=== PATIENT | female | born 1940 | race Caucasian/White ===

== ENCOUNTER → 2018-04-09 | Outpatient (CLI) | payer OTHER ==
[~2018-04-09] VITALS: Ht 152.4 cm; Wt 56.7 kg
[~2018-04-09] MED LIST: BENTYL 10 MG CA10 M1 PO; BIOTIN5000 MCG PO; FISH OIL 1,001000 M2 PO; GREEN TEA1 EACH PO; HAIR FORMULA T1 EACH PO; LEXAPRO20 MG PO; MULTI VITAMIN1 EACH PO; PRAVACHOL40 MG PO; PRILOSEC 20 MG20 MG PO; TRAVATAN Z2.5 ML OPHTHALMIC; VITAMIN D-32000 UNIT PO; ZETIA10 MG PO
--- NOTE | 2018-04-10 12:36 | P ---
[facility] [place] [address] PROCEDURE REPORT Name: SAYDALISABrettUSHA A Room #: REG [facility]#: [id number] Admission: 04/09/18 ������������������ Attend Phys: Jaycob Cortez MD Discharge: ������������������ Date of : 42 Report #: [id number] THIS REPORT FOR: //name// CC: Jaycob Johnson MD BRIEF HISTORY: The patient is a 78-year-old woman with a history of microscopic colitis in the past, which had resolved; however, she now has irregular bowel habits with pencil like stools. She has irregular bowel habits and change in her stool consistency and pattern. PREOPERATIVE DIAGNOSES: Change in stool habits and abdominal pain. POSTOPERATIVE DIAGNOSES: Normal colonoscopy. Moderate sigmoid diverticulosis. MEDICATIONS: Deep sedation with propofol per Anesthesia. SPECIMENS: 1. Random biopsies, proximal colon, rule out colitis. 2. Random biopsies, distal colon and rectum, rule out colitis. ESTIMATED BLOOD LOSS: 3 mL. PROCEDURE: Colonoscopy to cecum and terminal ileum with biopsy. FINDINGS: Prior to propofol sedation, procedure of colonoscopy discussed with the patient as well as potential risks and its complications. She indicates she understands and desires to proceed. DESCRIPTION OF PROCEDURE: With the patient in left lateral decubitus position, digital examination was completed which revealed decreased anal sphincter tone. No mass lesions were palpable. Subsequently, the Olympus video colonoscope was introduced in the rectum, advanced under direct vision to the cecum. It was done with minimal difficulty. The cecum was identified by the ileocecal valve and the appendiceal orifice. I was able to visualize the distal segment of terminal ileum, which was inspected and noted to be unremarkable. At that point, the scope was slowly withdrawn and careful circumferential views obtained including retroflexion of the scope in the ascending colon. Upon slow withdrawal of the scope, the prep was noted to be excellent. The mucosa was within normal limits, normal vascular pattern and normal light reflex. As we withdrew the scope, no neoplastic or inflammatory changes were seen. There was no endoscopic evidence of colitis. Multiple random biopsies were obtained. The only abnormality noted was moderate sigmoid diverticular disease involving primarily the distal sigmoid. Scope was withdrawn in the rectum. Upon retroflexion, no abnormalities were seen. Scope was withdrawn. [address] [address] PROCEDURE REPORT Name: USHA SMITH [id number] Admission: 04/09/18 ������������������ Attend Phys: Jaycob Cortez MD Discharge: ������������������ Date of : 42 Report #: [id number] CONDITION OF THE PATIENT UPON DISCHARGE: Following procedure, the patient drowsy, arousable and conversant and will be discharged home when fully ambulatory. INSTRUCTIONS TO THE PATIENT AND FAMILY AT THE TIME OF DISCHARGE: No neoplastic lesions were seen. I do not find any inflammatory lesions either. We will follow up with the pathology to make further recommendations. As far as her abdominal pain, she may continue use dicyclomine, but should be cautious with that because of potential risk for drowsiness. This has been discussed with the patient, more view. Also, suggest pelvic floor exercises due to decreased anal tone. Also, suggest a fiber product which may add bulk and help stool consistencies and her bowel habits. If she does not have improvement of symptoms, she should return for a followup in the office. At this point in life, there is likely be of minimal benefit from routine screening colonoscopy; however, colonoscopy could be pursued based on specific problem or diagnosis. Withdrawal time from cecum was 10 minutes and 8 seconds. ��������������������������������������������� <ELECTRONICALLY SIGNED> ���������������������������������������� By: Jaycob Cortez MD ��������������������������������������������� 04/10/18 1236 [id number] [id number] Jaycob Cortez MD /nt
--- NOTE | 2018-04-10 12:36 | P ---
[facility] [place] [address] PROCEDURE REPORT Name: SARAHUSHA A Room #: REG [facility]#: [id number] Admission: 04/09/18 ������������������ Attend Phys: Jaycob Cortez MD Discharge: ������������������ Date of : 42 Report #: [id number] THIS REPORT FOR: //name// CC: Jaycob Johnson MD BRIEF HISTORY: The patient is a 78-year-old woman known to me with history of change in bowel habits with persistent looseness of stools. She also has upper abdominal pain, has a history of gastric ulcer. PREOPERATIVE DIAGNOSES: 1. Abdominal pain. 2. History of ulcer disease. 3. Solid food dysphagia. POSTOPERATIVE DIAGNOSES: 1. Mild diffuse gastritis. 2. Dysphagia. MEDICATIONS: Deep sedation with propofol per anesthesia. SPECIMEN: Biopsies of small bowel, rule out celiac disease. ESTIMATED BLOOD LOSS: 3 mL. PROCEDURE: EGD with biopsy, Strange dilation. FINDINGS: Prior to propofol sedation, procedure of upper endoscopy and dilation were discussed with the patient as well as potential risks and its complications. She indicates she understands and desires to proceed. DESCRIPTION OF PROCEDURE: With the patient in left lateral decubitus position, the Olympus video endoscope was inserted in the cervical esophagus under direct vision without difficulty. Examination of esophagus through its entire length revealed normal esophageal mucosa down the squamocolumnar junction. She has intermittent dysphagia, I did not see any strictures, rings, or masses. A significant hiatus hernia was not seen. There was no evidence of esophagitis or Mahmood mucosa. Scope was advanced in the stomach, was examined on end view as well as retroflexed views. There was erythema in the antrum, but no ulcers or erosions. There was no evidence of peptic ulcer disease on today's exam. Upon retroflexion, the mucosa was normal in the proximal stomach and no masses were seen in the cardia. The pylorus, duodenal bulb and postbulbar duodenal sweep down to the third portion were inspected and noted to be unremarkable. At that point, the scope was slowly withdrawn and careful circumferential views were obtained. Biopsies were obtained of the small bowel to evaluate for celiac disease in view of looseness in her stool. Following removal of the scope, she [address] [address] PROCEDURE REPORT Name: USHA SMITH Room #: REG [facility]#: [id number] Admission: 04/09/18 ������������������ Attend Phys: Jaycob Cortez MD Discharge: ������������������ Date of : 42 Report #: [id number] was dilated with passage of a 50[place] Strange dilator without resistance due to her symptoms of dysphagia. CONDITION OF THE PATIENT UPON DISCHARGE: Following procedure, the patient drowsy and prepared for colonoscopy. INSTRUCTIONS TO THE PATIENT AND FAMILY AT THE TIME OF DISCHARGE: We will follow up on biopsies and make further recommendations. If she has benefit from dilation, she is return on an as needed basis for dilation due to solid food dysphagia. As far as her abdominal pain, I do not see any ulcers. We will have her increase her omeprazole to 20 mg twice daily on a trial basis. We will proceed with colonoscopy at this time. ��������������������������������������������� <ELECTRONICALLY SIGNED> ���������������������������������������� By: Jaycob Cortez MD ��������������������������������������������� 04/10/18 1236 1154 [id number] Jaycob Cortez MD /nt
--- NOTE | 2018-04-16 15:24 | PATH ---
[facility] [address] [place] [address] PATHOLOGY RPT PROCEDURE Name: JACQUI SMITH Jose Room #: REG [facility]unal#: [id number] ������������������ Admission: 04/09/18 ������������������ Date of : 42 Discharge: Report #: [id number] Path Case #: [id number] [facility] Accession Number: [id number] . 01 Material submitted: . PART A: BX SMALL BOWEL R/O CELIAC DISEASE PART B: PROXIMAL COLON - RANDOM BX R/O MICROSCOPIC COLITIS PART C: DISTAL COLON AND RECTUM-RANDOM BX R/O MICROSCOPIC COLITIS . 01 Clinical history: . Dysphagia, abdominal pain, diarrhea. . 02 Diagnosis: A. Small bowel mucosa, small bowel R/O celiac disease, endoscopic biopsy: - Focal fundic-type metaplasia with mild acute and chronic duodenitis. - Negative for villous blunting or increase in intraepithelial lymphocytosis. . B. Large intestinal mucosa, proximal colon R/O microscopic colitis, endoscopic biopsy: - Mild active colitis with mild increase in intraepithelial lymphocytes, (please see comment) - Negative for dysplasia or malignancy. . C. Large intestinal mucosa, distal colon and rectum, endoscopic biopsy: - Mild active colitis with a mild increase in intraepithelial lymphocytes, (please see comment. - Negative for dysplasia or malignancy. (IUV:halima; 04/12/2018) QMS/04/13/2018 . 02 Comment: Parts B and C: Examination shows active cryptitis, neutrophilic infiltrate within the surface epithelium, and numerous lymphocytes within the crypts. The lamina propria cellularity is comprised of lymphocytes, plasma cells, and eosinophils. There are no crypt abscesses, granulomata, or viral inclusions present. Overall, the features are suggestive of acute colitis. The differential diagnosis includes acute colitis due to infection, a resolving episode of colitis, drug-induced or medication-induced colitis, early inflammatory bowel disease as well as diverticulitis.An evolving superimposed lymphocytic colitis is a possibility as well. Please correlate clinically. . Dr. Nay Franklin has seen part B and C and concurs with my diagnosis. (IUV:halima; 04/12/2018) [address] [address] PATHOLOGY RPT PROCEDURE Name: JACQUI SMITH Room #: REG [facility]#: [id number] ������������������ Admission: 04/09/18 ������������������ Date of : 42 Discharge: Report #: [id number] Path Case #: [id number] . 02 Electronically signed: . Venecia Levine MD, Pathologist NPI- [id number] . 01 Gross description: . A. Received in formalin labeled "Palbashiro, Jacqui, biopsy small bowel rule out celiac disease" is a 1.5 x 0.5 x 0.2 cm aggregate of sawyer-brown mucosa. The specimen is submitted in cassette A1. . B. Received in formalin labeled "Palitto, Jacqui, proximal colon random biopsy rule out microscopic colitis" is a 1.1 x 0.5 x 0.2 cm aggregate of sawyer-brown mucosa. The specimen is submitted in cassette B1. . C. Received in formalin labeled "Palitto, Jacqui, distal colon and rectum random biopsy rule out microscopic colitis" is a 1.1 x 0.6 x 0.2 cm aggregate of sawyer-brown mucosa. The specimen is submitted in cassette C1. ([facility]; 04/11/2018) SYC/SYC . 02 Pathologist provided ICD-10: K29.80, K52.9 . 02 CPT . 762268, 461847, 104145 Specimen Comment: Report sent to / DR CASTELLANO Performed at: [address], [place], [place] [id number] MD Mikey Akins MD Phone: [phone] Performed at: [address] [id number] MD Venecia Levine MD Phone: [phone]
== END | disposition home or self-care (01) ==
LOC: GI 09:09
DX: K57.30 Diverticulosis of large intestine without perforation or abscess without bleeding (principal); K52.9 Noninfective gastroenteritis and colitis, unspecified; R13.10 Dysphagia, unspecified; K29.80 Duodenitis without bleeding; K29.70 Gastritis, unspecified, without bleeding; K44.9 Diaphragmatic hernia without obstruction or gangrene; K31.89 Other diseases of stomach and duodenum; K21.9 Gastro-esophageal reflux disease without esophagitis; E78.5 Hyperlipidemia, unspecified; F41.9 Anxiety disorder, unspecified; Z87.891 Personal history of nicotine dependence; Z98.890 Other specified postprocedural states; Z88.0 Allergy status to penicillin; Z88.8 Allergy status to other drugs, medicaments and biological substances; Z79.899 Other long term (current) drug therapy
CPT/HCPCS: 62110; 62900